=== PATIENT | female | born 1985 | race Caucasian/White ===

== ENCOUNTER 2021-10-22 19:29 | Emergency (ER) | payer OTHER, SELFPAY ==
--- NOTE | ~2021-10-22 | XR_ITS ---
EXAM: XR foot LT min 3V DATE: 10/22/2021 19:42 HISTORY: PAIN dorsum Lt foot x 1 wk; unknown injury . COMPARISON: None available. FINDINGS: Normal mineralization. No fracture or dislocation. No lytic or blastic lesion. Joint space s are maintained. No erosion or periosteal change. Soft tissues within normal limits. IMPRESSION: No acute osseous finding in the left foot. Reviewed, dictated and finalized at location K.
[2021-10-22 19:42] VITALS: BP 104/72; PULSE 82; RESP 16; TEMP 37.2; O2SAT 100
--- NOTE | 2021-10-22 19:43 | ED.LOWEXIN ---
HPI - Extremity Injury (Lower) General Chief Complaint: Extremity Injury, Lower Stated Complaint: left foot injury Time Seen by Provider: 10/22/21 19:43 Source: patient Mode of arrival: ambulatory Limitations: no limitations History of Present Illness HPI Narrative: 36-year-old female presents with complaint of pain to dorsal aspect of left foot and anterior aspect of leg and ankle for 1 week. Reports that she has rolled her ankle/foot twice over the last week while doing yard work. Has been taking ibuprofen and applying ice. States that she currently wear a flip-flop due to other shoes pushing up against painful area, such as a tennis shoe. Range of motion and distal neurovascularly intact. Is concerned she may have a fracture due to pain not improving. Patient is ambulatory with slight limp. All systems reviewed and negative except as noted above. Related Data Home Medications Medication Instructions Recorded Confirmed No Home Medications 10/22/21 10/22/21 Review of Systems Review of Systems: CONSTITUTIONAL: Denies fever, chills, or sweats. EYES: Denies visual changes, redness, or discharge. ENT: Denies rhinorrhea, congestion, sore throat, or otalgia. CARDIOVASCULAR: Denies chest pain, palpitations, or edema. RESPIRATORY: Denies cough or dyspnea. GASTROINTESTINAL: Denies abdominal pain, nausea, vomiting, or diarrhea. GENITOURINARY: Denies dysuria or hematuria. SKIN: Denies rash or itching. MUSCULOSKELETAL: Denies back pain or myalgia. Reports left ankle and foot pain. NEUROLOGIC: Denies headache, numbness, or weakness. PSYCHIATRIC: Denies anxiety or depression. All other systems reviewed are negative, except as documented in HPI. PMFSH Comments At time of signature, agree with nursing past medical, surgical, social and family history. There is no relevant family history pertinent to the presenting complaint. Exam Narrative: GENERAL: This is a well-nourished, well-developed patient, in no apparent distress. HEAD: normocephalic, atraumatic. EYES: PERRL. Sclera clear/white. Vision is grossly intact. EARS: External ears normal NOSE: External nose normal NECK: Neck supple, non-tender without lymphadenopathy, masses or thyromegaly. CARDIOVASCULAR: Regular rate and rhythm without murmurs, gallops, or rubs. RESPIRATORY: Clear to auscultation. Breath sounds equal bilaterally. No wheezes, rales, or rhonchi. SKIN: warm, Dry, intact with no suspicious lesions or rash, good texture and turgor. NEURO: awake, alert, and oriented to person, place and time. There were no obvious focal neurologic abnormalities. EXTREMITIES: tenderness to dorsal aspect L foot and anterior L ankle Extrem: Ankle/foot/toe images: 1. tenderness on palpation Course Course Level of Care: Express Care Visit Vital Signs Vital signs: Vital Signs Temperature 37.2 C 10/22/21 19:42 Pulse Rate 82 10/22/21 19:42 Respiratory Rate 16 10/22/21 19:42 Blood Pressure 104/72 10/22/21 19:42 Pulse Oximetry 100 10/22/21 19:42 Oxygen Delivery Room Air 10/22/21 19:42 Temperature 37.2 C 10/22/21 19:42 Pulse Rate 82 10/22/21 19:42 Respiratory Rate 16 10/22/21 19:42 Blood Pressure 104/72 10/22/21 19:42 Pulse Oximetry 100 10/22/21 19:42 Oxygen Delivery Room Air 10/22/21 19:42 reviewed MDM - Extremity Injury (Lower) MDM Narrative Medical decision making narrative: Patient is aware of diagnosis, understands and agrees to treatment plan. Anticipatory guidance given. Patient agrees to follow-up as directed and is aware of reasons to seek care at the emergency department. Portions of this record may have been created with voice recognition software Differential Diagnosis Differential diagnosis: Likely ankle sprain and strain and ankle fracture Imaging Data My impression: agree with radiologist Radiologist's impression: EXAM:? XR foot LT min 3V DATE: 10/22/2021 19:42 HISTORY: PAIN dorsum Lt foot x
== END 2021-10-22 20:04 | disposition home or self-care (01) ==
LOC: EXPGLEN 19:34
PROVIDERS: Emergency Provider Nurse Practitioner Family; PCP Family Medicine
DX: S93.602A Unspecified sprain of left foot, initial encounter (principal); X50.9XXA Other and unspecified overexertion or strenuous movements or postures, initial encounter
CPT/HCPCS: 73630; 99213; G0463